=== PATIENT | male | born 1990 | race Caucasian/White ===

== ENCOUNTER 2024-09-25 21:56 | Emergency (ER) | payer BC ==
[2024-09-25] MEDS: Amoxicillin/Clavulanate K 875-125 MG Tab PO ONE (23:12)
== END 2024-09-25 23:14 | disposition home or self-care (01) ==
LOC: JD.ED 21:56
DX: H66.90 Otitis media, unspecified, unspecified ear (principal); Z86.16 Personal history of COVID-19; Z90.49 Acquired absence of other specified parts of digestive tract
CPT/HCPCS: 87651; 99283; A9270